=== PATIENT | male | born 1975 | race African-American/Black ===

== ENCOUNTER 2018-02-24 13:13 | Emergency (ER) | payer BC ==
[2018-02-24 13:24] VITALS: BP 136/91; PULSE 84; RESP 20; TEMP 98.1
--- NOTE | 2018-02-24 13:51 | ED ---
General Adult HPI - General Chief complaint: Extremity Problem,Nontraumatic Stated complaint: Shoulder Pain Time Seen by Provider: 02/24/18 13:35 Source: patient, RN notes reviewed Mode of arrival: ambulatory Limitations: no limitations - History of Present Illness Initial comments: Patient is a 42-year-old male presenting to the emergency room today with a chief complaint of left shoulder pain. Patient states that he does not remember any injury or trauma. He works the welder 2nd shift. He was at work last night sitting when he "feels some discomfort to the left shoulder. He has noticed it is worse on palpation to the anterior aspect. Also admits that he's noticed that it's worse with extension proximal shoulder height level that he feels increased pain. Patient states cannot remember any injury or trauma. He does admit that he works out quite a bit. He states it felt muscular to him so he tried some Advil with little relief of the symptoms because it was still there this morning when he woke up. Patient denies any other complaints or symptoms. Patient is not a smoker. No family history of cardiac disease. Patient denies any recent fever, chills, shortness of breath, chest pain, back pain, abdominal pain, nausea or vomiting, numbness or tingling, dysuria or hematuria, constipation or diarrhea, headaches or visual changes, or any other complaints. - Related Data Allergies Allergy/AdvReac Type Severity Reaction Status Date / Time No Known Allergies Allergy Verified 02/24/18 13:24 Review of Systems ROS Statement: Those systems with pertinent positive or pertinent negative responses have been documented in the HPI. ROS Other: All systems not noted in ROS Statement are negative. Past Medical History Past Medical History: No Reported History History of Any Multi-Drug Resistant Organisms: None Reported Past Surgical History: No Surgical Hx Reported Past Psychological History: No Psychological Hx Reported Smoking Status: Never smoker Past Alcohol Use History: None Reported Past Drug Use History: None Reported General Exam - General Exam Comments Initial Comments: General: The patient is awake and alert, in no distress, and does not appear acutely ill. Eye: Pupils are equal, round and reactive to light, extra-ocular movements are intact. No nystagmus. There is normal conjunctiva bilaterally. No signs of icterus. Ears, nose, mouth and throat: There are moist mucous membranes and no oral lesions. Neck: The neck is supple, there is no tenderness or JVD. Cardiovascular: There is a regular rate and rhythm. No murmur, rub or gallop is appreciated. Respiratory: Lungs are clear to auscultation, respirations are non-labored, breath sounds are equal. No wheezes, stridor, rales, or rhonchi. Musculoskeletal: Normal ROM. Patient does have tenderness the bicipital groove. Pain reproduced with certain movements. Strength 5/5 in all directions. Sensation intact. Pulses equal bilaterally 2+. Neurological: A&O x 3. CN II-XII intact, There are no obvious motor or sensory deficits. Coordination appears grossly intact. Speech is normal. Skin: Skin is warm and dry and no rashes or lesions are noted. Psychiatric: Cooperative, appropriate mood & affect, normal judgment. Limitations: no limitations Course Vital Signs 02/24/18 13:22 Temperature 98.1 F Pulse Rate 84 Respiratory 20 Rate Blood Pressure 136/91 O2 Sat by Pulse 98 Oximetry Medical Decision Making - Medical Decision Making Patient's vital stable. Patient has no significant past medical history or risk factors. Patient's pain reproduced on palpation to the left shoulder. This worse with extension at shoulder height. Patient's pain is felt to be muscular skeletal is advised continue anti-inflammatories. Is no specific bony tenderness. There is no trauma to the area. Has not felt that x-rays are beneficial were needed at this time. Advised to follow-up with family doctor if symptoms persist or return if any symptoms increase worsen. Patient states her stay and is in agreement. Disposition Clinical Impression: Shoulder sprain Disposition: HOME SELF-CARE Condition: Good Instructions: Shoulder Sprain (ED) Additional Instructions: Please use medication as discussed. Please follow-up with family doctor in the next 2-5 days of symptoms have not improved. Please return to emergency room if the symptoms increase or worsen or for any other concerns. Is patient prescribed a controlled substance at d/c from ED?: No Referrals: Nonstaff,Physician [Primary Care Provider] - 1-2 days Rodney Dennis MD [STAFF PHYSICIAN] - 1-2 days Time of Disposition: 13:51
== END 2018-02-24 14:06 | disposition home or self-care (01) ==
LOC: EC 13:13
DX: S43.402A Unspecified sprain of left shoulder joint, initial encounter (principal); X58.XXXA Exposure to other specified factors, initial encounter; Y92.69 Other specified industrial and construction area as the place of occurrence of the external cause
CPT/HCPCS: 99283